=== PATIENT | male | born 1970 | race Caucasian/White ===

== ENCOUNTER → 2018-12-04 14:49 | Outpatient (CLI) | payer OTHER, SELFPAY ==
[2018-12-04 15:06] LABS: Basophils % 0.5 % (0.1-2.0); Eosinophils # 0.1 K/mm3 (0.0-0.4); Eosinophils % 1.4 % (0.1-12.0); Hematocrit 48.9 % (42.0-52.0); Hemoglobin 16.1 g/dL (14.1-18.0); Lymphocytes # 1.8 K/mm3 (0.7-4.5); Lymphocytes % 32.2 % (10-50); Mean Corpuscular Volume 90.9 fl (80-94); Mean Platelet Volume 9.7 fl (7.4-10.4); Monocytes # 0.4 K/mm3 (0.1-1.0); Monocytes % 7.1 % (1.7-9.3); Neutrophils # 3.3 K/mm3 (1.8-7.8); Neutrophils % 58.8 % (37.0-80.0); Platelet Count 221 K/mm3 (142-424); Red Blood Count 5.38 M/mm3 (4.60-6.20); Red Cell Distribution Width 13.4 % (11.5-17.5); White Blood Count 5.7 K/mm3 (4.8-10.8)
[2018-12-04 15:35] LABS: Alanine Aminotransferase 54 U/L (12-78); Albumin Level 4.3 gm/dL (3.4-5.0); Albumin/Globulin Ratio 1.3 (1.1-1.8); Alkaline Phosphatase 91 U/L (46-116); Anion Gap 10.9 mEq/L (5-15); Aspartate Amino Transferase 22 U/L (15-37); Bilirubin,Total 0.4 mg/dL (0.2-1.0); Blood Urea Nitrogen 14 mg/dL (7-18); Carbon Dioxide 31 mmol/L (21.0-32.0); Chloride 103 mmol/L (98-107); Chol/HDL Ratio 7.9 (1-3.5); Cholesterol 244 mg/dL (140-200); Creatinine,Serum 0.97 mg/dL (0.70-1.30); Estimated Glomerular Filt Rate 83 ml/min (>60); GFR (African American) 100 ML/MIN (>60); Globulin 3.3 gm/dl (1.3-3.2); Glucose 181 mg/dL (74-106); HDL Cholesterol 31 mg/dL (27-67); Potassium 4.9 mmoL/L (3.5-5.1); Sodium 140 mmol/L (136-145); T4 (Thyroxine) 5.7 ug/dl (4.7-13.3); Thyroid Stimulating Hormone 0.96 uIU/ml (0.358-3.740); Total Protein,Serum 7.6 gm/dL (6.4-8.2); Triglycerides 591 mg/dL (30-200)
[2018-12-06 17:09] LABS: Vitamin D 25 Hydroxy 17.8 ng/mL (30.0-100.0)
[2018-12-10 14:28] LABS: Testosterone, Total, LC/MS 282.8 ng/dL (264.0-916.0); Testosterone,Free 6.3 pg/mL (6.8-21.5)
== END ==
PROVIDERS: Visit Provider Nurse Practitioner Family
DX: Z00.00 Encounter for general adult medical examination without abnormal findings (principal); R73.9 Hyperglycemia, unspecified; E78.5 Hyperlipidemia, unspecified; E55.9 Vitamin D deficiency, unspecified; R07.9 Chest pain, unspecified; R39.198 Other difficulties with micturition; N52.9 Male erectile dysfunction, unspecified; Z23 Encounter for immunization
CPT/HCPCS: 80053; 80061; 82652; 83036; 84402; 84403; 84436; 84443; 85025

== ENCOUNTER → 2019-07-26 10:11 | Outpatient (CLI) | payer MEDICAID, SELFPAY ==
--- NOTE | 2019-07-26 10:11 | NM_ITS ---
APPROVED REPORT Exam: Nuclear Stress Test Indication: chest pain..short of breath..fatigue Patient Location: Outpatient Stress Tech: Tavia Lamb [place] Tech:Yissel Lopez MAHNAZAlysa RT(R)(N) Ht: 6 ft 1 in Wt: 265 lbs HR: 64 bpm BP: 144/90 mmHg BSA: 2.42 m2 BMI: 34.9 History: chest pain..short of breath..fatigue Procedure: Patient exercised on Benito protocol 8.37 minutes and sec, resting heart rate 64 bpm, resting blood pressure 144/90 mmHg, with exercise maximum heart rate achived was 151 bpm which is Greater than 85 % of the maximum predicted heart rate and blood pressure was 162/90 mmHg. Patient denied any complaint of chest pain. Patient has Good exercise capacity, achieved 10.0 METs of workload on treadmill, the blood pressure response to exercise was Adequate. Electrocardiogram Resting electrocardiogram showed sinus rhythm, with exercise there is less than 1.[address] segment depression noted from the baseline EKG. The EKG portion of the exercise Myoview is negative for ischemia. Cardiac Stress and Resting SPECT Images: Cardiac Stress and Resting SPECT images were obtained using technetium 99m Myoview 32.8 mCi stress and 10.96 mCi at rest. Gated SPECT with analysis of segmental wall motion and calculation of the ejection fraction also done. Cardiac stress and resting SPECT images show mild fixed defect in the inferior wall with normal contracted gated SPECT is likely secondary to soft tissue attenuation, no reversible ischemia seen. Computer derived ejection fraction is 65% with no regional wall motion abnormality, right ventricle is normal size and contractility. Conclusion: 1. The EKG portion of the exercise Myoview is negative for ischemia, patient has good exercise capacity achieved 10 mets of workload on treadmill, the blood pressure response to exercise was adequate, there was no exercise-induced chest discomfort. 2. No scintigraphic evidence of reversible ischemia seen, computer derived ejection fraction 65% with no regional wall motion abnormality, right ventricle is normal size and contractility. 3. Likely normal exercise Myoview study. Electronically signed by : Alden Harris, 07/28/2019 08:14:54
--- NOTE | 2019-07-26 10:29 | CA_ITS ---
APPROVED REPORT EXAM: Comprehensive 2D, Doppler, and color-flow Echocardiogram Aquatics Manager: Indigo Hadley RT(R) Ht: 5 ft 11 in Wt: 264lbs BSA: 2.37 BP: 122/84 mmHg Indications: SOB, CP, ex smoker Echo Enhancing Agent Indication: Endocardial border delineation Agent(s) / Amount(s) Used: Definity 2 cc 2D Dimensions LVOT 1.87 cm (M/F) 1.5-2.5 M-Mode Dimensions RVDd 2.55 cm (0.9-2.6) LVDd 4.99 cm (3.5-5.7) LVDs 3.58 cm (3.5-5.7) IVSd 0.84 cm (0.6-1.1) PWd 0.69 cm (0.6-1.1) EF (Teich) 54.40% FS 28.30% EDV (Teich) 117.70 mL ESV (Teich) 53.70 mL LV Diastology E/A Ratio 1.32 Mitral Valve MV A Velocity 57.00 (40-130 cm/s) Left Ventricle Left atrium is normal size, left ventricle is normal size, there is no concentric left ventricular hypertrophy, visually estimated ejection fraction 55% with no regional wall motion abnormality. Diastolic parameters are within normal range. Right Ventricle Right atrium and right ventricular normal size and contractility. Aortic Valve Aortic valve is thickened and calcified leaflet chordae display good mobility, there is no aortic stenosis or aortic insufficiency. Mitral Valve Mitral valve is grossly normal, there is mild mitral regurgitation. Tricuspid Valve Tricuspid valve is grossly normal, there is mild tricuspid regurgitation, tricuspid regurgitation jet velocity is inadequate for calculation of the right ventricular systolic pressure. Pulmonic Valve Neck valve is poorly visualized. Great Vessels Aortic root is normal size. Pericardium No significant pericardial effusion noted. Conclusion 1. Normal left ventricular size, preserved left ventricular systolic function, visually estimated ejection fraction 55% with no regional wall motion abnormality, diastolic parameters are within normal range. 2. Mild mitral and tricuspid regurgitation. 3. No significant pericardial effusion noted. Electronically signed by : Alden Harris, 07/26/2019 12:25:00
--- NOTE | 2019-07-26 12:17 | CA_ITS ---
APPROVED REPORT Exam: Exercise Treadmill Technologist: Tavia Lamb, Ht: 6 ft 1 in Wt: 265 lbs BSA: 2.42 m2 Indications: SOA Medical History Medical History: Hyperlipidemia, Diabetic ??? Noninsulin Cardiac Risk Factors: Hyperlipidemia, Diabetes (non-insulin), FHX of CAD Stress Test Details Test: Benito HR Resting HR: 65 bpm Max Heart Rate (APMHR): 173 bpm Max HR Achieved: 151 bpm Target HR (85% APMHR): 147 bpm % of APMHR: 87 BP Resting BP: 144/90 mmHg Max BP: 183/95 mmHg ECG Clinical Exercise duration: 08:37 min Highest Stage Achieved: Exercise capacity: 10.1 METs Stress ECG Conclusion Negative for CP, Positive for SOA at peak infusion resolving in recovery occ PVC, vent. couplet noted less than 1.5mm ST depression images to follow Test Summary REST . . . . . . . Standing REST . . . . . . . Sitting REST 05:36 0.0 0.0 65 . 144/ 90 . . Stage 1 01:00 10.0 1.7 86 . . . . Stage 1 02:00 10.0 1.7 98 . . . . Stage 1 03:00 10.0 1.7 99 . . . . Stage 2 01:00 12.0 2.5 113 . 143/ 83 . . Stage 2 02:00 12.0 2.5 119 . 143/ 83 . . Stage 2 03:00 12.0 2.5 128 . 148/ 90 . . Stage 3 01:00 14.0 3.4 138 . . . . Stage 3 . . . . . . . Cardiolite injected Stage 3 02:00 14.0 3.4 148 . . . . Stage 3 02:37 14.0 3.4 150 . . . Stop exercise at 08:37 RECOVERY 01:00 0.0 0.0 122 . . . . RECOVERY 02:00 0.0 0.0 99 . . . . RECOVERY 03:00 0.0 0.0 87 . 162/ 90 . . RECOVERY 04:00 0.0 0.0 85 . 183/ 95 . . RECOVERY 04:37 0.0 0.0 80 . 165/ 86 . . Electronically signed by : Alden Harris, 07/26/2019 13:21:30
== END ==
PROVIDERS: PCP Nurse Practitioner Family; Visit Provider Nurse Practitioner Family
DX: I20.9 Angina pectoris, unspecified (principal); R06.02 Shortness of breath
CPT/HCPCS: 78452; 93017; 93306; A9502; Q9957

== ENCOUNTER → 2019-07-31 15:49 | Outpatient (CLI) | payer MEDICAID, SELFPAY ==
--- NOTE | 2019-07-31 15:56 | XR_ITS ---
PROCEDURE: XR CHEST 2V CLINICAL HISTORY: Lesion L Midsternal Palpable knot of the sternum COMPARISON: No exams were available for comparison FINDINGS: The cardiomediastinal silhouette and pulmonary vascularity are within normal limits. The lungs are clear without infiltrates, suspicious nodules, or pleural effusions. No acute bony findings. CT may provide further evaluation for palpable abnormality if clinically warranted IMPRESSION: No acute findings. Dictated by: Reji Hicks MD 07/31/2019 16:27 Electronically signed by Reji Hicks MD in [place] 07/31/2019 16:27
[2019-07-31 17:47] LABS: Chloride 105 mmol/L (98-107); Sodium 137 mmol/L (136-145)
[2019-07-31 17:48] LABS: Potassium 4.6 mmoL/L (3.5-5.1)
[2019-07-31 17:50] LABS: Alanine Aminotransferase 43 U/L (12-78); Albumin Level 4.4 g/dl (3.5-5.0); Alkaline Phosphatase 108 U/L (38-126); Anion Gap 9.6 mEq/L (5-15); Aspartate Amino Transferase 28 U/L (17-59); Basophils % 0.6 % (0.1-2.0); Bilirubin,Total 0.5 mg/dl (0.2-1.3); Blood Urea Nitrogen 16 mg/dl (9-20); Carbon Dioxide 27 mmol/L (22.0-30.0); Cholesterol 233 mg/dl (140-200); Eosinophils # 0.2 K/mm3 (0.0-0.4); Eosinophils % 2.5 % (0.1-12.0); Estimated Glomerular Filt Rate 90 ml/min (>60); GFR (African American) 109 ML/MIN (>60); Hematocrit 44.8 % (42.0-52.0); Hemoglobin 16.1 g/dL (14.1-18.0); Lymphocytes # 2.1 K/mm3 (0.7-4.5); Lymphocytes % 31.3 % (10-50); Mean Corpuscular HGB Conc 35.9 g/dL (31.8-35.4); Mean Corpuscular Hemoglobin 32.8 pg (27.0-31.2); Mean Corpuscular Volume 91.3 fl (80-94); Mean Platelet Volume 9.2 fl (7.4-10.4); Monocytes # 0.4 K/mm3 (0.1-1.0); Monocytes % 6.5 % (1.7-9.3); Neutrophils # 3.9 K/mm3 (1.8-7.8); Neutrophils % 59.1 % (37.0-80.0); Platelet Count 181 K/mm3 (142-424); Red Blood Count 4.91 M/mm3 (4.60-6.20); Red Cell Distribution Width 13.2 % (11.5-17.5); White Blood Count 6.6 K/mm3 (4.8-10.8)
[2019-07-31 17:51] LABS: Albumin/Globulin Ratio 1.6 (1.1-1.8); Calcium 9.8 mg/dl (8.4-10.2); Chol/HDL Ratio 7.1 (1-3.5); Globulin 2.8 g/dL (1.3-3.2); Glucose 223 mg/dl (74-100); HDL Cholesterol 33 mg/dl (40-60); Total Protein,Serum 7.2 g/dl (6.3-8.2)
[2019-07-31 17:56] LABS: Hemoglobin A1C 7.6 % (4.0-6.0)
[2019-07-31 18:01] LABS: Triglycerides 713 mg/dl (30-150)
[2019-07-31 18:02] LABS: Direct LDL Cholesterol 100.11 mg/dL (100-129)
[2019-07-31 18:08] LABS: T4 (Thyroxine) 4.4 ug/dl (5.53-11.0)
[2019-08-02 17:10] LABS: Microalbumin, Urine <3.0 ug/mL (Not Estab.)
== END ==
PROVIDERS: PCP Nurse Practitioner Family; Visit Provider Nurse Practitioner Family
DX: L98.9 Disorder of the skin and subcutaneous tissue, unspecified (principal); E11.9 Type 2 diabetes mellitus without complications; Z79.84 Long term (current) use of oral hypoglycemic drugs; Z79.899 Other long term (current) drug therapy; E55.9 Vitamin D deficiency, unspecified
CPT/HCPCS: 71046; 80053; 80061; 82043; 82652; 83036; 84436; 84443; 85025

== ENCOUNTER → 2020-03-06 14:26 | Outpatient (CLI) | payer BC, SELFPAY ==
[2020-03-06 16:17] LABS: Basophils % 0.5 % (0.1-2.0); Eosinophils # 0.4 K/mm3 (0.0-0.4); Eosinophils % 5.1 % (0.1-12.0); Hematocrit 49.8 % (42.0-52.0); Hemoglobin 17.7 g/dL (14.1-18.0); Lymphocytes # 2.2 K/mm3 (0.7-4.5); Lymphocytes % 29.8 % (10-50); Mean Corpuscular HGB Conc 35.6 g/dL (31.8-35.4); Mean Corpuscular Hemoglobin 31.9 pg (27.0-31.2); Mean Corpuscular Volume 89.5 fl (80-94); Mean Platelet Volume 9.7 fl (7.4-10.4); Monocytes # 0.5 K/mm3 (0.1-1.0); Monocytes % 6.7 % (1.7-9.3); Neutrophils # 4.2 K/mm3 (1.8-7.8); Neutrophils % 57.8 % (37.0-80.0); Platelet Count 213 K/mm3 (142-424); Red Blood Count 5.56 M/mm3 (4.60-6.20); Red Cell Distribution Width 13.1 % (11.5-17.5); White Blood Count 7.2 K/mm3 (4.8-10.8)
[2020-03-06 16:24] LABS: Alanine Aminotransferase 48 U/L (12-78); Albumin Level 4.7 g/dl (3.5-5.0); Albumin/Globulin Ratio 1.4 (1.1-1.8); Alkaline Phosphatase 156 U/L (38-126); Anion Gap 13.7 mEq/L (5-15); Aspartate Amino Transferase 32 U/L (17-59); Bilirubin,Total 0.5 mg/dl (0.2-1.3); Blood Urea Nitrogen 19 mg/dl (9-20); Calcium 10.3 mg/dl (8.4-10.2); Carbon Dioxide 27 mmol/L (22.0-30.0); Chloride 100 mmol/L (98-107); Chol/HDL Ratio 9.3 (1-3.5); Cholesterol 297 mg/dl (140-200); Estimated Glomerular Filt Rate 103 ml/min (>60); GFR (African American) 125 ML/MIN (>60); Globulin 3.3 g/dL (1.3-3.2); Glucose 278 mg/dl (74-100); HDL Cholesterol 32 mg/dl (40-60); Potassium 4.7 mmoL/L (3.5-5.1); Sodium 136 mmol/L (136-145)
[2020-03-06 16:32] LABS: Triglycerides 1312 mg/dl (30-150)
[2020-03-06 16:36] LABS: C-Reactive Protein 3.2 mg/L (0-4); Direct LDL Cholesterol 73.06 mg/dL (100-129)
[2020-03-06 16:43] LABS: Free T4 (Free Thyroxine) 0.89 ng/dl (0.78-2.19)
[2020-03-06 16:54] LABS: Erythrocyte Sedimentation Rate 22 mm/hr (0-15)
[2020-03-06 16:57] LABS: Thyroid Stimulating Hormone 0.99 uIU/mL (0.465-4.68)
[2020-03-06 17:08] LABS: Hemoglobin A1C 7.5 % (4.0-6.0)
== END ==
PROVIDERS: Visit Provider Nurse Practitioner Family
DX: E11.9 Type 2 diabetes mellitus without complications (principal); E78.5 Hyperlipidemia, unspecified; I25.10 Atherosclerotic heart disease of native coronary artery without angina pectoris; R53.83 Other fatigue; Z79.84 Long term (current) use of oral hypoglycemic drugs; Z68.34 Body mass index [BMI] 34.0-34.9, adult
CPT/HCPCS: 80053; 80061; 82306; 83036; 84439; 84443; 85025; 85651; 86140

== ENCOUNTER → 2020-03-31 12:27 | Outpatient (CLI) | payer BC, SELFPAY ==
--- NOTE | 2020-03-31 12:32 | XR_ITS ---
PROCEDURE: XR HIP LT 2-3V W/PELVIS CLINICAL INDICATION: left hip pain COMPARISON: No exams were available for comparison FINDINGS: There are mild osteoarthritic changes of the left hip. No fracture or dislocation. No lytic or blastic change. IMPRESSION: Mild osteoarthritis otherwise negative Dictated by: Reji Hicks MD 03/31/2020 14:49 Reji Hicks MD in [place] 03/31/2020 14:49
--- NOTE | 2020-03-31 12:32 | XR_ITS ---
PROCEDURE: XR KNEE LT 4V CLINICAL INDICATION: LEFT KNEE PAIN; WEIGHTBEARING The COMPARISON: No exams were available for comparison FINDINGS: No fracture or dislocation. No lytic or blastic change. There is normal mineralization. There are mild osteoarthritic changes of the medial compartment. Other findings:None. IMPRESSION: Mild osteoarthritis otherwise negative Dictated by: Reji Hicks MD 03/31/2020 14:48 Reji Hicks MD in [place] 03/31/2020 14:48
== END ==
PROVIDERS: PCP Nurse Practitioner Family; Visit Provider Orthopaedic Surgery
DX: M25.552 Pain in left hip (principal); M25.562 Pain in left knee
CPT/HCPCS: 73502; 73564